=== PATIENT | female | born 1980 | race African-American/Black ===

== ENCOUNTER 2020-05-12 15:24 | Emergency (ER) | payer SELFPAY | END 2020-05-12 18:21 | disposition home or self-care (01) | LOC: ERS 15:24 | DX: S09.90XA Unspecified injury of head, initial encounter (principal); S90.811A Abrasion, right foot, initial encounter; F17.210 Nicotine dependence, cigarettes, uncomplicated; W20.8XXA Other cause of strike by thrown, projected or falling object, initial encounter | CPT/HCPCS: 99283 ==

== ENCOUNTER 2021-02-21 10:04 | Emergency (ER) | payer SELFPAY ==
[2021-02-21 18:11] LABS: SARS-CoV-2 PCR by NAA Not Detected (NotDetected)
== END 2021-02-21 12:15 | disposition home or self-care (01) ==
LOC: ERS 10:04
DX: J18.9 Pneumonia, unspecified organism (principal); Z20.822 Contact with and (suspected) exposure to COVID-19; F17.210 Nicotine dependence, cigarettes, uncomplicated
CPT/HCPCS: 71045; U0003; U0005

== ENCOUNTER 2023-11-06 10:59 | Emergency (ER) | payer SELFPAY ==
[2023-11-06] MEDS ORDERED: Fluorescein Opthalmic Strip ONE (11:39)
[2023-11-06] MEDS ORDERED: Proparacaine 0.5% Opth 15 ML BOT ONE (11:39)
== END 2023-11-06 12:25 | disposition home or self-care (01) ==
LOC: ERS 10:59
DX: S05.01XA Injury of conjunctiva and corneal abrasion without foreign body, right eye, initial encounter (principal); H10.9 Unspecified conjunctivitis; F17.210 Nicotine dependence, cigarettes, uncomplicated; X58.XXXA Exposure to other specified factors, initial encounter
CPT/HCPCS: 99282